=== PATIENT | male | born 2000 | race Caucasian/White ===

== ENCOUNTER 2021-09-12 21:20 | Inpatient (IN) ==
[2021-09-12 22:15] LABS: ABS Basophils 0.1 10^3/ul (0-0.2); ABS Eosinophils 0.3 10^3/ul (0-0.6); ABS Monocytes 0.5 10^3/ul (0-0.8); ABS Neutrophils 6.4 10^3/ul (1.5-7.7); Eosinophil % 3.3 %; Hematocrit 41 % (42-52); Lymphocyte % 21.7 %; Mean Corpuscular HGB Conc 35 g/dL (31-36); Mean Corpuscular Hemoglobin 30 pg (27-31); Mean Corpuscular Volume 86 fL (80-94); Mean Platelet Volume 8.8 fL (7.4-10.4); Platelet Count 228 10^3/uL (150-450); Red Cell Distribution Width 14 % (10-15); White Blood Count 9.3 10^3/uL (3.5-10.8)
[2021-09-12 22:22] LABS: Urine Appearance Clear; Urine Bilirubin Negative (Negative); Urine Blood Negative (Negative); Urine Color Yellow; Urine Glucose Negative (Negative); Urine Ketones Negative (Negative); Urine Nitrite Negative (Negative); Urine Protein Negative (Negative); Urine Specific Gravity 1.017 (1.002-1.030); Urine Urobilinogen Negative (Negative)
[2021-09-12 22:31] LABS: ALT 21 U/L (7-52); Acetaminophen < 15 mcg/mL; Albumin 4.3 g/dL (3.2-5.2); Alcohol, S < 13 mg/dL (<13); Alkaline Phosphatase 72 U/L (35-149); Blood Urea Nitrogen 25 mg/dL (6-24); CO2 Carbon Dioxide 22 mmol/L (22-32); Calcium 9.5 mg/dL (8.6-10.3); Chloride 106 mmol/L (101-111); Globulin 2.2 g/dL (2-4); Glucose 102 mg/dL (70-100); Salicylate < 2.50 mg/dL (<30); Sodium 137 mmol/L (135-145); Total Protein 6.5 g/dL (6.4-8.9); Urine Benzodiazepine Screen None Detected (None Detect); Urine Cannabinoids Screen None Detected (None Detect); Urine Opiates Screen None Detected (None Detect); eGFR CKD-EPI 119.1 (>60)
[2021-09-12 22:35] LABS: Anion Gap 9 mmol/L (2-11)
[2021-09-12 22:45] LABS: TSH Ultra Thyroid Stim Horm 0.79 mcIU/mL (0.34-5.60)
[2021-09-13] MEDS ORDERED: Al Hydrox/Mg Hydrox/Simet LIQ 30 ML UDC PO PRN (02:37)
[2021-09-13] MEDS ORDERED: chlorproMAZINE TAB 50 MG Q6H PRN AGITATION PO (03:00)
[2021-09-13] MEDS: Vitamin THERAPEUTIC TAB PO SCH (11:59)
[2021-09-14 08:57] LABS: HDL Cholesterol 57.6 mg/dL; Potassium Redraw 4.3 mmol/L (3.5-5.0)
[2021-09-14] MEDS: Vitamin THERAPEUTIC TAB PO SCH (09:23)
[2021-09-15] MEDS: Vitamin THERAPEUTIC TAB PO SCH (08:09)
[2021-09-16] MEDS: Vitamin THERAPEUTIC TAB PO SCH (08:08)
[2021-09-17] MEDS: Vitamin THERAPEUTIC TAB PO SCH (07:44)
[2021-09-18] MEDS: Vitamin THERAPEUTIC TAB PO SCH (08:11)
[2021-09-19 07:52] VITALS: BP 122/77
[2021-09-19] MEDS: Vitamin THERAPEUTIC TAB PO SCH (08:09)
== END 2021-09-19 11:25 | disposition home or self-care (01) | DRG 753 ==
LOC: ED 21:20 → BSU 23:00
PROVIDERS: ADMIT Student in an Organized Health Care Education/Training Program; ATTEND Student in an Organized Health Care Education/Training Program